=== PATIENT | female | born 1965 | race Asian ===

== ENCOUNTER 2018-06-01 19:00 | Emergency (ER) | payer OTHER ==
[~2018-06-01] VITALS: Ht 149.9 cm; Wt 90.7 kg
[2018-06-01 21:00] VITALS: BP 151/92; TEMP 98.7
== END 2018-06-01 21:00 | disposition home or self-care (01) ==
LOC: ED 19:00
DX: R55 Syncope and collapse (principal); R11.2 Nausea with vomiting, unspecified; R51 Headache
CPT/HCPCS: 87502; 87651; 96372; 99283; J1885; J2405

== ENCOUNTER 2018-06-21 13:12 | Outpatient (CLI) | payer OTHER | END 2018-06-21 20:05 | disposition home or self-care (01) | LOC: RAD 13:12 | DX: R10.84 Generalized abdominal pain (principal) ==

== ENCOUNTER 2019-01-10 15:52 | Outpatient (CLI) | payer OTHER ==
[2019-01-10 16:28] LABS: PLATELET COUNT 364 K/uL (152-353)
[2019-01-10 16:41] LABS: SODIUM 142 mmol/L (136-145)
== END 2019-01-10 20:13 | disposition home or self-care (01) ==
LOC: LAB 15:52
PROVIDERS: Family Medicine
DX: R07.89 Other chest pain (principal); R10.84 Generalized abdominal pain; R19.7 Diarrhea, unspecified; G43.909 Migraine, unspecified, not intractable, without status migrainosus
CPT/HCPCS: 36415; 80053; 81000; 82550; 83735; 84100; 84439; 84443; 84484; 85027

== ENCOUNTER 2019-05-16 13:06 | Emergency (ER) | payer OTHER ==
[~2019-05-16] VITALS: Ht 149.9 cm; Wt 68.0 kg
[2019-05-16 13:11] VITALS: TEMP 97.7
[2019-05-16 14:09] LABS: POTASSIUM 4.4 mmol/L (3.6-5.2); SODIUM 139 mmol/L (136-145)
[2019-05-16 14:22] LABS: PLATELET COUNT 317 K/uL (152-353)
[2019-05-16 15:05] VITALS: BP 138/88
== END 2019-05-16 15:05 | disposition home or self-care (01) ==
LOC: ED 13:06
PROVIDERS: Hospitalist
DX: J40 Bronchitis, not specified as acute or chronic (principal); J06.9 Acute upper respiratory infection, unspecified
CPT/HCPCS: 80048; 84484; 85027; 87502; 87651; 93005; 96372; 99283; J0696

== ENCOUNTER 2019-07-30 11:32 | Outpatient (CLI) | payer OTHER ==
[2019-07-30 12:11] LABS: PLATELET COUNT 349 K/uL (152-353)
[2019-07-30 12:21] LABS: POTASSIUM 3.9 mmol/L (3.6-5.2)
== END 2019-07-30 23:07 | disposition home or self-care (01) ==
LOC: RAD 11:32
PROVIDERS: Nurse Practitioner Family
DX: R22.32 Localized swelling, mass and lump, left upper limb (principal); M25.532 Pain in left wrist
CPT/HCPCS: 36415; 80053; 84550; 85027; 85651; 86140

== ENCOUNTER 2019-09-29 10:09 | Outpatient (CLI) | payer OTHER | END 2019-09-29 22:23 | disposition home or self-care (01) | LOC: US 10:09 | DX: R22.1 Localized swelling, mass and lump, neck (principal) ==

== ENCOUNTER 2019-10-12 07:37 | Outpatient (CLI) | payer OTHER | END 2019-10-12 21:44 | disposition home or self-care (01) | LOC: RAD 07:37 | DX: R13.19 Other dysphagia (principal) ==

== ENCOUNTER 2019-10-12 09:10 | Emergency (ER) | payer OTHER ==
[~2019-10-12] VITALS: Ht 149.9 cm; Wt 85.7 kg
[2019-10-12 09:15] VITALS: TEMP 98.5
[2019-10-12 10:24] LABS: PLATELET COUNT 318 K/uL (152-353)
[2019-10-12 12:15] VITALS: BP 161/95
== END 2019-10-12 12:35 | disposition home or self-care (01) ==
LOC: ED 09:10
PROVIDERS: Emergency Medicine
DX: R51 Headache (principal); R10.84 Generalized abdominal pain
CPT/HCPCS: 80053; 81000; 82150; 82550; 82553; 83690; 84484; 85027; 93005; 99283

== ENCOUNTER 2020-03-29 09:15 | Emergency (ER) | payer OTHER ==
[~2020-03-29] VITALS: Ht 149.9 cm; Wt 89.8 kg
[2020-03-29 09:25] VITALS: TEMP 97.5
[2020-03-29 10:31] LABS: PLATELET COUNT 354 K/uL (152-353)
[2020-03-29 10:37] LABS: POTASSIUM 4.3 mmol/L (3.6-5.2); SODIUM 139 mmol/L (136-145)
[2020-03-29 11:20] VITALS: BP 156/94
== END 2020-03-29 11:20 | disposition home or self-care (01) ==
LOC: ED 09:15
PROVIDERS: Emergency Medicine Emergency Medical Services
DX: J12.9 Viral pneumonia, unspecified (principal); Z20.828 Contact with and (suspected) exposure to other viral communicable diseases
CPT/HCPCS: 36415; 80053; 84484; 85027; 87635; 93005; 96374; 99284; J1885; U0003

== ENCOUNTER 2020-05-11 09:51 | Outpatient (CLI) | payer OTHER ==
[2020-05-11 10:45] LABS: PLATELET COUNT 340 K/uL (152-353)
[2020-05-11 11:05] LABS: POTASSIUM 3.9 mmol/L (3.6-5.2)
== END 2020-05-11 23:59 | disposition home or self-care (01) ==
LOC: LABW 09:51
PROVIDERS: ATTEND Family Medicine
DX: R10.84 Generalized abdominal pain (principal); M54.89 Other dorsalgia; G89.4 Chronic pain syndrome; Z79.899 Other long term (current) drug therapy
CPT/HCPCS: 36415; 80053; 80061; 82150; 83690; 84443; 85027

== ENCOUNTER 2020-07-09 09:33 | Emergency (ER) | payer OTHER ==
[~2020-07-09] VITALS: Ht 149.9 cm; Wt 89.8 kg
[2020-07-09 09:38] VITALS: TEMP 97.4
[2020-07-09 10:04] LABS: PLATELET COUNT 339 K/uL (152-353)
[2020-07-09 10:17] LABS: POTASSIUM 4.2 mmol/L (3.6-5.2); SODIUM 138 mmol/L (136-145)
[2020-07-09 10:33] LABS: PARTIAL THROMBOPLASTIN TIME 26.3 SECONDS (24.5-33.6)
[2020-07-09 11:34] VITALS: BP 138/75
== END 2020-07-09 11:34 | disposition home or self-care (01) ==
LOC: ED 09:33
PROVIDERS: Hospitalist
DX: J06.9 Acute upper respiratory infection, unspecified (principal); R06.02 Shortness of breath; Z20.828 Contact with and (suspected) exposure to other viral communicable diseases
CPT/HCPCS: 36415; 80053; 81000; 82550; 83880; 84484; 85027; 85610; 85730; 87502; 87635; 87651; 93005; 96360; 96365; 96375; 99284; J0696; J2405; U0003

== ENCOUNTER 2020-09-12 10:26 | Outpatient (CLI) | payer OTHER ==
[2020-09-12 11:23] LABS: PLATELET COUNT 348 K/uL (152-353)
[2020-09-12 11:30] LABS: POTASSIUM 3.9 mmol/L (3.6-5.2)
== END 2020-09-12 21:30 | disposition home or self-care (01) ==
LOC: RAD 10:26
PROVIDERS: ATTEND Family Medicine
DX: M54.89 Other dorsalgia (principal); J02.9 Acute pharyngitis, unspecified; G89.4 Chronic pain syndrome
CPT/HCPCS: 36415; 80053; 81000; 85027

== ENCOUNTER 2021-02-12 15:21 | Outpatient (CLI) | payer OTHER ==
[2021-02-12 16:39] LABS: PLATELET COUNT 371 K/uL (152-353)
[2021-02-12 17:03] LABS: POTASSIUM 3.7 mmol/L (3.6-5.2)
== END 2021-02-12 21:58 | disposition home or self-care (01) ==
LOC: LABW 15:21
PROVIDERS: ATTEND Family Medicine
DX: R55 Syncope and collapse (principal); R32 Unspecified urinary incontinence; R51.9 Headache, unspecified; R21 Rash and other nonspecific skin eruption; M25.561 Pain in right knee; M79.604 Pain in right leg; S99.821A Other specified injuries of right foot, initial encounter; Z79.899 Other long term (current) drug therapy; Y92.9 Unspecified place or not applicable
CPT/HCPCS: 36415; 80053; 81000; 84439; 84443; 84484; 85027

== ENCOUNTER 2021-07-03 10:09 | Outpatient (CLI) | payer OTHER | END 2021-07-03 19:39 | disposition home or self-care (01) | LOC: RAD 10:09 | PROVIDERS: ATTEND Family Medicine | DX: M54.9 Dorsalgia, unspecified (principal); M25.519 Pain in unspecified shoulder ==

== ENCOUNTER 2023-05-25 09:49 | Emergency (ER) | payer OTHER ==
[~2023-05-25] VITALS: Ht 149.9 cm; Wt 89.8 kg
[~2023-05-25 09:49] MED LIST: 904272561 PO; CLIN300C PO
[2023-05-25 09:52] VITALS: TEMP 97.7
[2023-05-25 10:42] LABS: PLATELET COUNT 374 K/uL (152-353)
[2023-05-25 10:51] LABS: POTASSIUM 4.1 mmol/L (3.6-5.2)
[2023-05-25 10:55] LABS: PARTIAL THROMBOPLASTIN TIME 31.3 SECONDS (23.9-36.7)
[2023-05-25 12:12] VITALS: BP 154/84
== END 2023-05-25 12:15 | disposition home or self-care (01) ==
LOC: ED 09:49
PROVIDERS: Family Medicine
DX: R07.89 Other chest pain (principal); M94.0 Chondrocostal junction syndrome [Tietze]; F41.9 Anxiety disorder, unspecified; I10 Essential (primary) hypertension; E03.8 Other specified hypothyroidism
CPT/HCPCS: 80053; 82550; 84484; 85027; 85610; 85730; 93005; 99284; J1885; J2360